=== PATIENT | male | born 1995 | race Two or more races ===

== ENCOUNTER 2016-08-29 11:02 | Emergency (ER) | payer MEDICAID ==
[~2016-08-29] VITALS: Ht 165.1 cm; Wt 52.6 kg
[~2016-08-29 11:02] MED LIST: AZIT500T; PHENPAK3; PRO125RS
[2016-08-29 11:08] VITALS: BP 132/94
[2016-08-29] MEDS ORDERED: LIDOCAINE 1% HCL (LOCAL ANESTH.) INJ 20ML MDV IN ONE (12:15)
== END 2016-08-29 12:32 | disposition home or self-care (01) ==
LOC: ER 11:02
DX: S61.213A Laceration without foreign body of left middle finger without damage to nail, initial encounter (principal); W26.8XXA Contact with other sharp object(s), not elsewhere classified, initial encounter; Y93.89 Activity, other specified; Y99.8 Other external cause status; Y92.89 Other specified places as the place of occurrence of the external cause
CPT/HCPCS: 12002; 99283; J2001

== ENCOUNTER 2025-01-22 08:43 | Emergency (ER) | payer MEDICAID, SELFPAY ==
[~2025-01-22] VITALS: Ht 165.1 cm; Wt 59.0 kg
[2025-01-22 08:44] VITALS: TEMP 98.2
--- NOTE | 2025-01-22 09:56 | ED.PDOC ---
Tiffany. trauma (HPI) HPI Comments 30 y/o M, presents to the ED for CC of left lower extremity pain. Patient states, that he accidently twisted his left ankle last night (01/21/25) and has now been unable to ambulate or bear weight onto his left extremity. Patient has notable swelling to his left ankle. Patient denies numbness, tingling, or sensitivity to touch. No other symptoms or modifying factors are present at this time. Chief Complaint: Lower Extremity Time Seen by MD: 09:45 Primary Care Provider: NONE Reviewed notes: Nurses Notes, Medications, Allergies Allergies: Coded Allergies: NO KNOWN ALLERGIES (Unverified , 05/29/11) Home Meds Active Scripts Hydrocodone-Acetaminophen (Hydrocodone Bitartrate/AC 5-325 mg) 1 Tab Tab, 1 TAB PO Q8HP PRN for 7 Days, #21 TAB Prov:JOHNNIE GONZALEZ MD 01/22/25 Reported Medications Promethazine Hcl (Promethegan) 12.5 Mg Sup 05/29/11 Azithromycin (Zithromax) 500 Mg Tab 05/29/11 [id number] (Theraflu Cold & Cough) Cold/Cgh Jeremy 05/29/11 Information Source: Patient Mode of Arrival: Wheelchair Severity: Moderate Timing: Hours Duration: Since onset Prehospital treatment: None Location: (L) Ankle Location of laceration: None Mechanism: Twisting Associated signs and symtoms: None Past Medical History PAST MEDICAL HISTORY: Denies Surgical History: Denies all surgeries Family History Family History: Unknown Social History Smoker: Non-Smoker Lives In: Home Constitutional: denies: chills, diaphoresis, fatigue, fever, malaise, sweats, weakness, others EENTM: denies: blurred vision, double vision, ear bleeding, ear discharge, ear drainage, ear pain, ear ringing, eye pain, eye redness, hearing loss, mouth pain, mouth swelling, nasal discharge, nose bleeding, nose congestion, nose pain, photophobia, tearing, throat pain, throat swelling, voice changes, others Respiratory: denies: cough, hemoptysis, orthopnea, SOB at rest, shortness of breath, SOB with excertion, stridor, wheezing, others Cardiovascular: denies: chest pain, dizzy spells, diaphoresis, Dyspnea on exertion, edema, irregular heart beat, left arm pain, lightheadedness, palpitations, PND, syncope, others Gastrointestinal: denies: abdomen distended, abdominal pain, blood streaked bowels, constipated, diarrhea, dysphagia, difficulty swallowing, hematemesis, melena, nausea, poor appetite, poor fluid intake, rectal bleeding, rectal pain, vomiting, others Genitourinary: denies: burning, dysuria, flank pain, frequency, hematuria, incontinence, penile discharge, penile sore, pain, testicle pain, testicle swelling, urgency, others Neurological: denies: dizziness, fainting, headache, left sided numbness, left sided weakness, numbness, paresthesia, pre-existing deficit, right sided numbness, right sided weakness, seizure, speech problems, tingling, tremors, weakness, others Musculoskeletal: reports: others (left ankle pain); denies: back pain, gout, joint pain, joint swelling, muscle pain, muscle stiffness, neck pain Integumetry: denies: bruises, change in color, change in hair/nails, dryness, laceration, lesions, lumps, rash, wounds, others Allergic/Immunocompromised: denies: Difficulty Healing, Frequent Infections, Hives, Itching, others Hematologic/Lymphatic: denies: anemia, blood clots, easy bleeding, easy bruising, swollen glands, others Endocrine: denies: excessive hunger, excessive sweating, excessive thirst, excessive urination, flushing, intolerance to cold, intolerance to heat, unexplained weight gain, unexplained weight loss, others Psychiatric: denies: anxiety, bipolar disorder, depression, hopeless, panic disorder, schizophrenia, sleepless, suicidal, others All Other Systems: Reviewed and Negative Physical Exam General Appearance: Moderate Distress HEENT: Normal ENT Inspection, Pharynx Normal, TMs Normal Neck: Full Range of Motion, Non-Tender, Normal, Normal Inspection Respiratory: Chest Non-Tender, Lungs Clear, No Accessory Muscle Use, No Respiratory Distress, Normal Breath Sounds Cardiovascular: No Edema, No JVD, No Murmur, No Gallop, Normal Peripheral Pulses, Regular Rate/Rhythm Breast Exam: Deferred Gastrointestinal: No Organomegaly, Non Tender, No Pulsatile Mass, Normal Bowel Sounds, Soft Genitalia: Deferred Pelvic: Deferred Rectal: Deferred Extremities: No calf tenderness, Normal capillary refill, No pedal edema Musculoskeletal : Location: Left Extremity Location: Ankle Apperance: Swelling, Limited ROM, Tenderness: Moderate Neurologic: Alert, machine tender II-XII nml as Tested, No Motor Deficits, Normal Affect, Normal Mood, No Sensory Deficits Cerebellar Function: Normal Reflexes: Normal Skin: Dry, Normal Color, Warm Lymphatic: No Adenopathy Was a procedure done? Was a procedure done?: No Differential Diagnosis Multiple Trauma: Fractures, Abrasions, Contusion X-Ray, Labs, Meds, VS Vital Signs Date Time Temp Pulse Resp B/P (MAP) Pulse Ox O2 Delivery O2 Flow Rate FiO2 01/22/25 09:54 92 18 120/72 (88) 97 01/22/25 09:54 92 18 97 Room Air 01/22/25 08:44 98.2 110 16 153/93 99 98.2 Current Medications Medications (Trade) Dose Ordered Sig/Rigo Route Start Time Stop Time Status Last Admin Acetaminophen/ Hydrocodone Bitart (Sunflower 10/325MG Tab) 1 tab ONCE ONCE PO 01/22/25 09:45 01/22/25 09:46 DC 01/22/25 09:58 X-ray of the left ankle shows: IMPRESSION: 1. Distal fibula fracture as described above. 2. Nondisplaced fracture of the posterior malleolus. The patient was given Sunflower for the pain The patient is being placed in a stirrup splint and a posterior splint The patient was given crutches and gait training The patient will return to the emergency department's the condition worsens Images Reviewed?: Images reviewed and evaluated by me Time of 1ST Reevaluation: 10:15 Reevaluation 1ST: Unchanged Patient Education/Counseling: Diagnosis, Treatment, Prognosis, Need For Follow Up Family Education/Counseling: No Family Present Departure 1 Departure Time of Disposition: 10:20 Impression: Primary Impression: Closed left ankle fracture Qualified Codes: S82.892A - Other fracture of left lower leg, initial encounter for closed fracture Disposition: 01 HOME / SELF CARE / HOMELESS Condition: Fair e-Prescriptions Hydrocodone-Acetaminophen (Hydrocodone Bitartrate/AC 5-325 mg) 1 Tab Tab 1 TAB PO Q8HP PRN for 7 Days, #21 TAB Prov: JOHNNIE GONZALEZ MD 01/22/25 Discharged With: Self Critical Care Note Critical Care Time?: No Stability Stability form required: No Heart Score Heart Score: Heart Score Response (Comments) Value History N/A 0 EKG N/A 0 Age N/A 0 Risk Factors N/A 0 Troponin N/A 0 Total 0 I personally scribed for JOHNNIE GONZALEZ MD ([email or web address]) on 01/22/25 at 09:56. Electronically submitted by Bailey Jaquez ([email or web address]). JOHNNIE GONZALEZ MD Jan 22, 2025 09:56
[2025-01-22] MEDS: HYDROcodone-ACET 10/325MG TAB PO ONE (09:58)
--- NOTE | 2025-01-22 10:04 | DVH ---
CLINICAL INFORMATION: Trauma. TECHNIQUE: 3 views of the left ankle were obtained. COMPARISON: None FINDINGS: Obliquely oriented acute fracture of the distal fibula, with the distal aspect of the fract ure extending to the level of the tibiotalar joint. Acute fracture of the posterior malleolus without significant displacement visualized. Talar dome is smooth. No widening at the ankle mortise. No sig nificant arthropathy. Moderate soft tissue swelling around the ankle, most prominent adjacent to the lateral malleolus. IMPRESSION: 1. Distal fibula fracture as described above. 2. Nondisplaced fracture of the posterior malleolus.
[2025-01-22] MEDS ORDERED: HYDR-4902 PO (10:26)
[2025-01-22] MEDS: KETOROLAC TROMETH 60MG/2ML VIAL IM ONE (11:13)
[2025-01-22 11:48] VITALS: BP 133/92; PULSE 85; RESP 20; O2SAT 94
== END 2025-01-22 11:49 | disposition home or self-care (01) ==
LOC: ER 08:43
DX: S82.832A Other fracture of upper and lower end of left fibula, initial encounter for closed fracture (principal); X50.1XXA Overexertion from prolonged static or awkward postures, initial encounter; Y93.89 Activity, other specified; Y92.89 Other specified places as the place of occurrence of the external cause; Y99.8 Other external cause status
CPT/HCPCS: 29515; 73610; 96372; 99283; J1885